=== PATIENT | female | born 1945 | race Caucasian/White ===

== ENCOUNTER → 2017-05-13 | Day surgery (SDC) | payer MEDICARE, OTHER ==
[~2017-05-13] MED LIST: AMLODIPINE BESYL5 MG PO; DESFLURANE 240 ML BTL INH ONE; DEXAMETHASONE SOD PHOS INJ 4 MG/ML VIAL ONE; FENTANYL CITRATE/PF 100MCG/2 ML INJ ONE; FOSINOPRIL SODI40 MG PO; IOPAMIDOL 300MG/ML 100 ML INFUS..BTL IV ONE; IOTHALAMATE MEGLUMINE 17.20% 250 ML BTL ONE; LEVOFLOXACIN 500MG/D5W 100ML 100 ML IV ONE; LEVOTHYROXINE50 MCG PO; LIDOCAINE HCL 2% LOCAL INJ 5 ML SDV VIAL INJ ONE; MACROBID 100 M100 MG PO; MIDAZOLAM HCL 2 MG/2 ML VIAL ONE; ONDANSETRON HCL INJ 2 MG/ML VIAL ONE; OSCIMIN0.125 MG PO; PANTOPRAZOLE SO40 MG PO; PROPOFOL IV EMULSION 10 MG/ML 20 ML VIAL ONE; TRAZODONE HCL50 MG PO; ZIAC 10-6.25 M1 EACH PO
--- OUTSIDE RECORDS SUMMARY | 2017-05-13 09:07 | XMS REPORT | Clinical Summary ---
Author Author [facility] Address Unknown Phone Unavailable Care Team Providers Care Manager Brand Name Role Phone Erickson Aguilar MD PCP Allergies Not on File Current Medications Not on file Active Problems Not on file Encounters Date Type Specialty Care Team Description 02/10/2017 [facility] Radiology Lizandro Mckeon, Urinary tract infection Encounter MD without hematuria, site unspecified; Diverticulitis of bladder; Atony of bladder 02/02/2017 Transcribe Access Lizandro Mckeon, Urinary tract infection Orders MD without hematuria, site unspecified (Primary Dx); Diverticulitis of bladder; Atony of bladder 01/30/2017 [facility] Radiology Erikcson Aguilar MD Encounter for screening Encounter mammogram for malignant neoplasm of breast 01/20/2017 Transcribe Erickson Dias MD Encounter for screening Orders mammogram for malignant neoplasm of breast (Primary Dx) after 05/12/2016 Social History Tobacco Use Types Packs/Day Years Used Date Never Assessed Sex Assigned at Date Recorded Not on file Last Filed Vital Signs Not on file Plan of Treatment Health Maintenance Due Date Last Done Comments COLONOSCOPY 05/03/1993 ZOSTER VACCINE 2003 PNEUMOCOCCAL 05/03/2008 POLYSACCHARIDE VACCINE AGE 65 AND OVER PNEUMOCOCCAL-13 05/03/2008 INFLUENZA VACCINE 09/16/2016 MAMMOGRAM 01/30/2019 01/30/2017, 01/30/2016, 01/24/2016, Additional history exists Results * ECG 12 lead (05/07/2017 3:16 PM) Component Value Ref Range Ventricular rate 57 Atrial rate 57 IN interval 164 QRSD interval 74 QT interval 428 QTC interval 416 P axis 1 80 QRS axis 1 22 T wave axis 69 EKG impression Sinus bradycardia-Otherwise normal ECG-No previous ECGs available- Specimen Performing Laboratory [facility] [address] [place] [address] * US Renal (02/10/2017 1:35 PM) Specimen Performing Laboratory [facility] [address] [place] [address] Narrative PROCEDURE:US RENAL CLINICAL HISTORY:N39.0 Urinary tract infectionsite not specified, N30.90 Cystitisunspecified without hematuria, UTI COMPARISON:None. TECHNIQUE: Multiple echo tomograms were performed in the sagittal and transverse orientations of the right and left kidney. Color-flow and spectral pulse wave Doppler interrogation was also performed of the arterial system in both kidneys with calculation of resistive indices. The bladder was also interrogated.. FINDINGS: The renal parenchymal echogenicity is normal relative to the adjacent solid organs and relative to the renal sinus. The renal parenchymal thickness is preserved. No hydronephrosis, perinephric fluid collections, solid masses, or abnormal posterior acoustic shadowing is demonstrated from either kidney. The right kidney .07 cmLENGTH X4.84 cm AP. The right renal parenchymal thickness measures 1.1 cm. The left kidney .1 cm LENGTH X 5.2 cm AP. The left renal parenchymal thickness measures 1.2 cm. Color flowDoppler confirm arterial flow to both kidneys. The bladder at presentation 9.4 cm x 7.5 cm x 8.8 cm for volume of 324 mL. Postvoid the bladder measures 6.1 cm x 7.3 cm x 6.6 cm for volume of 58 mL. IMPRESSION: Unremarkable exam. No evidence of obstructive uropathy. [facility]-[id number] . Procedure Note [facility], Radiology Results Incoming - 02/10/2017 2:09 PM TISSUE TECHNOLOGIST PROCEDURE: US RENAL CLINICAL HISTORY: N39.0 Urinary tract infection site not specified, N30.90 Cystitis unspecified without hematuria, UTI COMPARISON: None. TECHNIQUE: Multiple echo tomograms were performed in the sagittal and transverse orientations of the right and left kidney. Color-flow and spectral pulse wave Doppler interrogation was also performed of the arterial system in both kidneys with calculation of resistive indices. The bladder was also interrogated.. FINDINGS: The renal parenchymal echogenicity is normal relative to the adjacent solid organs and relative to the renal sinus. The renal parenchymal thickness is preserved. No hydronephrosis, perinephric fluid collections, solid masses, or abnormal posterior acoustic shadowing is demonstrated from either kidney. The right kidney measures 11.07 cm LENGTH X 4.84 cm AP. The right renal parenchymal thickness measures 1.1 cm. The left kidney measures 11.1 cm LENGTH X 5.2 cm AP. The left renal parenchymal thickness measures 1.2 cm. Color flow Doppler confirm arterial flow to both kidneys. The bladder at presentation 9.4 cm x 7.5 cm x 8.8 cm for volume of 324 mL. Postvoid the bladder measures 6.1 cm x 7.3 cm x 6.6 cm for volume of 58 mL. IMPRESSION: Unremarkable exam. No evidence of obstructive uropathy. [facility]-[id number] . * Mammo Breast Screen Tomosynthesis Bilateral (01/30/2017 7:58 AM) Specimen Performing Laboratory [facility] [address] [place] [address] Narrative PROCEDURE: MAMMO BREAST SCREEN TOMOSYNTHESIS BILATERAL Computer-assisted detection was utilized inthe interpretation of this exam. COMPARISON: Right diagnostic mammograms 01/30/2016, bilateral mammograms January 2016 and 2014 TECHNIQUE: Bilateral digital screening mammogram was performed and interpreted using computer-assisted detection. HISTORY: Asymptomatic routine screening. Family History: No known family history. FINDINGS: BreastComposition: There are scattered areas of fibroglandular density ( category B). No suspicious mass , architectural distortion or suspicious microcalcifications are present. There is stable right lower breast asymmetry, unchanged from year 2015. There has been no significant interval change since prior mammograms. IMPRESSION: No mammographic evidence of malignancy. BI-RADS CATEGORY 2: BENIGN. RECOMMENDATIONS:If the clinical breast examination is unchanged and normal , annual screening mammography is recommended per ACS and ACR guidelines. PATIENT INFORMATION HAS BEEN ENTERED INTO A REMINDER SYSTEM WITH TARGET DUE DATE FOR THE NEXT MAMMOGRAM. NOTE: This facility is a designated A[facility] ( [facility]) , meeting standards of accreditation in all modalities of breast imaging. This facility is accredited by The [employer] for Mammography. A negative x-ray report should not delay biopsy if a dominant or clinically suspicious mass is present. Not all cancers are identified by x-ray. [id number] after 05/12/2016 Insurance Payer Benefit Subscriber ID Type Phone Address Plan / Group MEDICARE MEDICARE xxxxxxxxxx Medicare [place], [place] PART A AND B xxxxxxxxxx [employer] [place] [address]
--- NOTE | 2017-05-13 10:52 | Diagnostic Imaging Report ---
PROCEDURE: Frontal and lateral views of the chest. COMPARISON: None. INDICATIONS: PRE OPERATIVE CHEST X-RAY FOR UROLOGY SX FINDINGS: Lines/tubes: None. Lungs: The lungs are well inflated and clear. There is no evidence of pneumonia or pulmonary edema. Pleura: There is no pleural effusion or pneumothorax. Heart and mediastinum: The heart and the mediastinum are normal. Atherosclerotic calcifications. Bones: No acute bony abnormality. Degenerative changes of the thoracic spine. IMPRESSION: No acute radiographic abnormality. Dictated by: Clint Carreon M.D. on 05/13/2017 at 10:53 Electronically approved by: Clint Carreon M.D. on 05/13/2017 at 10:53
--- NOTE | 2017-05-13 13:37 | Operative Report ---
DATE OF PROCEDURE: May 13, 2017 PREOPERATIVE DIAGNOSIS 1. History of recurrent urinary tract infections. 2. History of recurrent pyelonephritis. POSTOPERATIVE DIAGNOSIS 1. History of recurrent urinary tract infections. 2. History of recurrent pyelonephritis. OPERATION 1. Cystogram. 2. Cystoscopy and bilateral retrograde pyelograms. HOMEBIRTH MIDWIFE: Dr. Espinosa. ANESTHETIC: General. Ms. Stevens is a 72-year-old female who presented with a chief complaint of recurrent urinary tract infections associated with fever and chills at times. This patient was placed on the table in the lithotomy position and was prepped and draped in a sterile manner after satisfactory anesthesia. A cystogram was performed in the usual fashion with instilling of the contrast material, and 300 mL was delivered. The cystogram showed normal bladder contour with no evidence of reflux. The bladder emptied completely. Cystoscopy was then performed using both right-angle and the Foroblique lens, and it was noted that the bladder mucosa showed some chronic cystitis with chronic trigonitis and cobblestone appearance. Both ureteral orifices were seen and were within normal position, configuration, efflux. The bladder wall was normal. Right retrograde pyelogram was then performed using a number 8 ball-tipped urethral catheter inserted at the right ureteral orifice, and 5 mL of contrast material was injected. The retrograde performed was normal. Left retrograde pyelogram was performed similarly and was normal. The bladder was drained, cystoscope removed, and patient taken to the recovery room in satisfactory condition. Plans for this lady are to be placed on Levaquin 250 mg once a day for 10 days. Ultracet tablet one every 6 to 8 hours p.r.n. and was given 15. She will be continued on Macrodantin 100 mg once every night. She is to return to the office in 1 month. Job#: [id number]
== END | disposition home or self-care (01) ==
LOC: OR 09:05
PROVIDERS: ATTEND Specialist
DX: N30.20 Other chronic cystitis without hematuria (principal); N30.30 Trigonitis without hematuria; M19.90 Unspecified osteoarthritis, unspecified site; R06.02 Shortness of breath; I10 Essential (primary) hypertension; K21.9 Gastro-esophageal reflux disease without esophagitis; E03.9 Hypothyroidism, unspecified; F32.9 Major depressive disorder, single episode, unspecified; Z87.891 Personal history of nicotine dependence
CPT/HCPCS: 52005; 71046; 74430; C1758; J1100; J1956; J2001; J2250; J2405; Q9958; Q9967